=== PATIENT | female | born 1975 | race Hispanic/Latino ===

== ENCOUNTER 2016-03-12 06:59 | Day surgery (SDC) | payer OTHER ==
[~2016-03-12] VITALS: Ht 154.9 cm; Wt 61.4 kg
[2016-03-12] VITALS (8 sets, daily range): BP systolic 103–116; BP diastolic 57–71; PULSE 86–103; RESP 11–17; O2SAT 95–100
[~2016-03-12 06:59] MED LIST: Levofloxacin 500 mg/100 mL D5W IV ONE; NPR500T PO; mirena INTRAUTERI
[2016-03-12] MEDS ORDERED: Lidocaine PF 1% 30 mL Inj ONE (07:00)
[2016-03-12] MEDS ORDERED: Glycopyrrolate 0.2 mg/mL 5 mL Inj ONE (07:00)
[2016-03-12] MEDS ORDERED: Neostigmine 1 mg/mL 5 mL Inj ONE (07:00)
[2016-03-12] MEDS ORDERED: Dexamethasone 4 mg/mL Inj ONE (07:00)
[2016-03-12] MEDS ORDERED: fentaNYL-PF 50 mCg/mL 2 mL Inj ONE (07:00)
[2016-03-12] MEDS ORDERED: Propofol 10,000 mCg/mL 20 mL Inj ONE (07:00)
[2016-03-12] MEDS ORDERED: Ondansetron 2 mg/mL 2 mL Inj ONE (07:00)
[2016-03-12] MEDS ORDERED: Rocuronium 10 mg/mL 5 mL Inj ONE (07:00)
[2016-03-12] MEDS ORDERED: EPHEDrine/NS 5 mg/mL 5 mL Syringe ONE (07:00)
[2016-03-12] MEDS ORDERED: Lactated Ringer's 1,000 ML IV ONE ×2 (07:23→07:28)
[2016-03-12] MEDS ORDERED: POLY17PO6 PO (08:16)
[2016-03-12] MEDS ORDERED: OXYC5TAB72 PO (08:16)
[2016-03-12] MEDS ORDERED: Polyethylene Glycol (PEG) 17 Gm Powder PO SCH (08:30)
[2016-03-12] MEDS ORDERED: SENN-133 PO (08:32)
[2016-03-12] MEDS ORDERED: Bupivacaine-MPF 0.5% 30 mL Inj INFILTRATE ONE (09:13)
[2016-03-12] MEDS ORDERED: Lactated Ringer's 500 ML IV PRN (09:33)
[2016-03-12] MEDS ORDERED: Lactated Ringer's 1,000 ML IV SCH (09:33)
--- NOTE | 2016-03-12 09:33 | PCM.HPANE ---
Patient Data Surgeon Admitting Provider: Attending Provider:Isa Rangel MD Primary Care Physician:Sonia Lobato MD Other Provider:Josey Munroeingham Anesthesia Reason for Visit Cholelithiasis Ht/WT & BMI Height (Feet): 5 Height (Inches): 1.00 Weight (Kilograms): 61.4 Body Mass Index 25.00 Allergies Coded Allergies: No Known Allergies (Unverified Allergy, Unknown, 02/15/16) Past Anesthesia History Anesthesia History: Denies:: Abnormal Airway, Anesthesia Reactions, Difficult Intubation Diabetes History Hx Diabetes?: No MRSA MRSA: No Medications Hypertension Medication: No Home Meds Incl Beta Sarahy: No Active Scripts Sennosides (Senna)8.6 Mg Iiqzwm47.2 Mg PO DAILY #60 TABLET Ref 9 Prov:Isa Rangel MD 03/12/16 Polyethylene Glycol 3350 (Miralax)17 Gm Powd.pack17 Gm PO DAILY #20 Prov:Isa Rangel MD 03/12/16 oxyCODONE 5 Mg Tablet5 Mg PO Q4H PRN For Moderate Pain #20 TABLET Prov:Isa Rangel MD 03/12/16 Reported Medications Naproxen 500 Mg Liv912 Mg PO TID PRN For Pain Ref 0 03/09/16 [mirena] 20mcg/24hr No Conflict Check20 Mcg INTRAUTERI DAILY 03/09/16 History History of ENT Problems?: No HEENT History: Denies:: Abnormal Airway Cataracts Difficult Intubation Dysphagia Glaucoma Hearing Problem Sinus Problem TMJ Hx of Heart Problems?: No Cardiovascular History: Denies:: AICD Abdominal Aortic Aneurism Congestive Heart Failure Coronary Artery Disease Edema Heart Murmur Hypertension Irregular Heartbeat Pacemaker Peripheral Vascular Hx of Respiratory Problem?: Yes Respiratory History: Positive for:: Dyspnea (occasional) Denies:: Asthma COPD Emphysema Oxygen Administration Pneumonia Tuberculosis Use of C-PAP Machine Hx Neurologic Problems?: No Neurological History: Denies:: CVA Dementia Dizziness Headaches Multiple Sclerosis Parkinson's Disease Seizures TIA Hx of GI Problems?: Yes Gastrointestinal History: Positive for:: Gall Bladder Disease (current admission problem) Denies:: Gastroesphageal Reflux Heartburn Hiatal Hernia Liver Disease Rectal Bleeding Hx of Problems?: No Genitourinary History: Denies:: Kidney Stones Urinary Tract Infection Female Hx: Denies:: Currently (tubal ligation) Problems with Breasts? Hx Musculoskeletal Problems?: No Musculoskeletal History: Denies:: Back Injury Fibromyalgia Joint Replacement Musculoskeletal Trauma Myasthenia Gravis Osteoarthritis Rheumatoid Arthritis Hx of Psycho/Social Problems?: No Hx Surgeries?: Yes (c section, tubal ligation) Hx Any Other Health Problems?: Yes Other History: Denies:: Cancer Thyroid Disease History Blood Transfusions: Positive for:: Accept Blood Products? Denies:: Blood Transfusions Hx Diabetes: No Hx Alcohol Use: NoHx Substance Use: No Smoking Status: Never Smoker Have You Smoked inLast 12 mo: No Stop/Bang S-Snoring: Do You Snore Loudly: No T-Tired: feel tired, fatigued: No O-Obsered: Observed not breath: No P-Blood Pressure: treated: No B- Body Mass Index > 35 kg/m2: No A- Age over 50: No N- Neck Large Circumference: No G- Gender Male: No ANAID Total Score: 0 Risk Assessment Category Category 1A: Patient has history of documented sleep apnea, and HAS NOT received any narcotic, sedative or anesthesia administration during this stay. Category 1B: Patient has history of documented sleep apnea, and HAS received any narcotic , sedative or anesthesia administration during this stay Category 2: Patient has SUSPECTED Obstructive Sleep Apnea, and HAS received any narcotic , sedative or anesthesia administration during this stay. Category 3: Patient has SUSPECTED Obstructive Sleep Apnea and HAS NOT received narcotic, sedative or anesthesia administration during this stay. Category 4: Outpatient in Procedural Areas with known sleep apnea or who screen positive for High Risk via the STOP/BANG questionnaire. Exam Exam Vital Signs Vital Signs Date Time Temp Pulse Resp B/P Pulse Ox O2 Delivery O2 Flow Rate FiO2 03/12/16 07:29 36 86 17 103/57 99 Room Air General Appearance: Alert, Oriented X3 HEENT/AIRWAY: MP 2, Neck Movement (FROM) Lungs: Clear to Auscultation, Clear to Percussion Heart: Exam Unremarkable, Regular Rate/Rhythm Meds/Labs/Diagnostics Admission Meds Current Medications Lactated Ringer's (Lr) 1,000 ml @ ud STK-MED ONCE IV Last administered on t 07:28; Start 03/12/16 at 07:28; Stop 03/12/16 at 07:29; Status DC Plan Impression Patient chart reviewed, patient interviewed and anesthestic plan with risks, benefits, and alternatives discussed, and informed consent obtained. NPO Status: 03/11@1999 ASA Physical Status: ASA2 Mod Systemic Disease Anesthetic Plan: GA Bene/Risks/Altern/Consents: Yes HP Complete Prior to Induction: Yes Chava Araiza MD Mar 12, 2016 07:49
[2016-03-12] MEDS ORDERED: Atropine 0.4 mg/mL Inj IVPUSH PRN (09:35)
[2016-03-12] MEDS ORDERED: Labetalol 5 mg/mL 4 mL Inj IV PRN (09:35)
[2016-03-12] MEDS ORDERED: Dexamethasone 4 mg/mL Inj IVPUSH PRN (09:35)
[2016-03-12] MEDS ORDERED: Phenylephrine 10,000 mCg/mL Inj IVPUSH PRN (09:35)
[2016-03-12] MEDS ORDERED: Ondansetron 2 mg/mL 2 mL Inj IVPUSH PRN (09:35)
[2016-03-12] MEDS ORDERED: HYDROmorphone 1 mg/mL Inj IVPUSH PRN (09:35)
[2016-03-12] MEDS ORDERED: EPHEDrine Sulfate 50 mg/mL Inj IVPUSH PRN (09:35)
[2016-03-12] MEDS: fentaNYL-PF 50 mCg/mL 2 mL Inj IVPUSH PRN ×2 (11:33→11:48)
--- NOTE | 2016-03-12 12:10 | PCM.ANEP1 ---
Post Anesthesia Phase 1 PACU Phase 1 Assessment Vital Signs Vital Signs Date Time Temp Pulse Resp B/P Pulse Ox O2 Delivery O2 Flow Rate FiO2 03/12/16 11:35 90 14 112/65 99 Nasal Cannula 2 03/12/16 11:25 95 13 115/62 95 Room Air 03/12/16 11:15 36.6 101 11 116/64 100 Simple Mask 10 03/12/16 07:29 36 86 17 103/57 99 Room Air Anesthetic Administered: GA Level of Alertness: Awake, talking BEAVERS's with Equal Strength: Yes Pain: No Nausea or Vomiting: No Oxygen Delivery: Simple Mask Lungs: Clear to Auscultation, Clear to Percussion Chava Araiza MD Mar 12, 2016 12:10
--- NOTE | 2016-03-12 12:10 | PCM.ANEP2 ---
Post Anesthesia Evaluation ASA/CMS Post Anesthesia VS in Patient's Normal Range?: Yes Resp Stable; Airway Patent?: Yes CV Function & Hydration Stable: Yes Mental Status Recovered?: Yes Pain control Satisfactory?: Yes N/V Control Satisfactory?: Yes Chava Araiza MD Mar 12, 2016 12:10
--- NOTE | 2016-03-12 12:31 | OP ---
[address] [address] OPERATIVE REPORT PATIENT: ODILON DUNLAP : 1975 MR#: [id number] ADMIT: 03/12/2016 JOB ID: [id number] DATE OF SURGERY: 03/12/2016 PREOPERATIVE DIAGNOSIS(ES): Cholelithiasis. POSTOPERATIVE DIAGNOSIS(ES): Cholelithiasis. PROCEDURE PERFORMED: Laparoscopic cholecystectomy with attempted intraoperative cholangiogram. SURGEON: Isa Rangel MD HAT IRONER: Frandy Baker PA-C INDICATIONS: The patient is a 41-year-old lady who presented to our emergency room on February 15, 2016, with abdominal pain, nausea, and vomiting. There was a question of gallstones raised based on bedside ultrasound, but she had a CT and normal liver function studies, and they told her she did not have gallstones. After going home, she continued to have episodic upper abdominal pain, and Dr. Lobato got an ultrasound which showed gallstones and sent her to be served for surgical consultation. After discussing the risks, benefits, and alternatives, she is here today for laparoscopic cholecystectomy with cholangiogram. PROCEDURE DETAILS: She was placed in supine position and underwent smooth induction of general anesthesia. Abdomen was prepped and draped in the usual sterile fashion. Surgical time-out was undertaken using safety checklist, and all were in agreement. I began by making an infraumbilical incision, opening up the old infraumbilical scar. I entered the abdomen using combination of open Trev technique and the Optiview trocar after obtaining pneumoperitoneum with a 5 mm port abscess to a 12 and placed her in right side up head up position and placed three additional 5 mm ports under direct vision in the upper abdomen. I then retracted the gallbladder cephalad and to the right and took the adhesions of the duodenum down sharply. After that, I dissected the triangle of Calot anteriorly and posteriorly. I isolated the cystic artery and divided it between clips. After that, I dissected the cystic duct circumferentially and made a ductotomy after controlling it with a clip on the specimen side. Attempts to advance a cholangiogram catheter through the duct were not successful, and ultimately actually I ended up transecting the duct. After that, I grabbed the cystic duct stump with a clamp and attempted to do a cholangiogram, but I was not successful. Then, I ended up controlling it with a clip and an Endoloop. After that, I dissected the rest of the gallbladder off the liver bed with good hemostasis and placed it in an EndoCatch bag. After ensuring I had good hemostasis, I removed the gallbladder along with the bag and desufflated the abdomen and closed the umbilical port fascia with [id number] 0-Vicryl suture. Skin was reapproximated with 4-0 Monocryl. Steri-Strips and sterile dressing were applied. Patient was recovered from anesthesia and was taken to the recovery room in stable condition.
--- NOTE | 2016-03-14 11:26 | PATH ---
SURGICAL PATHOLOGY Attending Physician:Isa Rangel MD CASE STATUS: Signed Out PATIENT NAME: ODILON DUNLAP PID: [id number] : 1975 DATE COLLECTED:03/12/2016 20:31 SPECIMEN: Gallbladder CLINICAL HISTORY: CHOLELITHIASIS 1). GALLBLADDER FINAL DIAGNOSIS: 1.GALLBLADDER: CHOLELITHIASIS. NO EVIDENCE OF MALIGNANCY. ICD10 CODE K80.7 GROSS DESCRIPTION: The specimen is received in one formalin filled container labeled with the patient's name, sublabeled "gallbladder" and consists of a slightly opened 9.0 x 3.0 x 2.5 CM gallbladder. The serosa is smooth. The wall is 0.3-0.6 CM in thickness. The mucosa is a light green to to in color. The lumen contains a light green mucoid material and approximately 30-40 light yellow-green multifaceted calculi which range in size from 0.2-0.7 CM in greatest dimension. 5 member services representative sections are submitted in one cassette. 03/12/2016 DAC MICRO DESCRIPTION: See diagnosis. ICD-9 CODES: CPT CODES: 1: 78207 Electronically Signed Out Maru Stewart MD [facility] [address], [place] [address] Technical component performed at [facility], [facility] [address], [place], [address]
== END 2016-03-12 23:59 | disposition home or self-care (01) ==
LOC: SAS 06:59
PROVIDERS: ATTEND Student in an Organized Health Care Education/Training Program
DX: K80.20 Calculus of gallbladder without cholecystitis without obstruction (principal); D64.9 Anemia, unspecified; F32.9 Major depressive disorder, single episode, unspecified; K59.00 Constipation, unspecified; Z97.5 Presence of (intrauterine) contraceptive device
CPT/HCPCS: 47563; 76001; J1100; J1170; J2405; J2710; J7120

== ENCOUNTER 2016-04-09 17:04 | Inpatient (IN) | payer OTHER ==
[~2016-04-09] VITALS: Ht 162.6 cm; Wt 57.0 kg
[~2016-04-09 17:04] MED LIST changes: -Levofloxacin 500 mg/100 mL D5W IV ONE; +OXYC5TAB72 PO; +POLY17PO6 PO; +SENN-133 PO
[2016-04-09 18:37] VITALS: BP 124/82; PULSE 75; RESP 18; O2SAT 100
[2016-04-09] MEDS ORDERED: Ondansetron 2 mg/mL 2 mL Inj IVPUSH PRN (18:45)
[2016-04-09] MEDS ORDERED: MetoCLOpramide 5 mg/mL 2 mL Inj IVPUSH PRN (18:45)
[2016-04-09] MEDS ORDERED: HYDROmorphone PCA 0.2 mg/mL 30 mL Inj IV PRN (18:45)
--- NOTE | 2016-04-09 19:12 | NUR ---
pt arrived from Urgent Care as a direct admit under Dr Rangel, admitted with acute biliary obstruction, pt fairly comfortable at this time because she received a Pain med injection at Urgent Care. Denies nausea
[2016-04-09] MEDS ORDERED: OXYC-474 PO (19:50)
[2016-04-09] MEDS ORDERED: SENN-133 PO (19:50)
[2016-04-09] MEDS: Ampicillin-Sulbactam Inj 3,000 MG in 0.9% Sodium Chloride 100 ML IV SCH ×2 (20:30→23:10)
[2016-04-09 20:50] VITALS: BP 104/68; PULSE 69; RESP 16; O2SAT 99
--- NOTE | 2016-04-09 21:11 | DRSVH ---
PROCEDURE: MR ABDOMEN MRCP INDICATIONS: Abdomen pain,Choledocholithiasis TECHNIQUE: Coronal HASTE through the abdomen, axial 2-D FLASH in- and [id number], and breath-hold T2 FSE with fat saturation through the biliary system and pancreas. Oblique coronal and axial thin-slice HASTE, radial thick-slab HASTE centered on the extrahepatic bile ducts. Intravenous secretin: Not requested. COMPARISON: [facility], CT, CT ABD PELVIS W CON, 04/09/2016, 15:58. FINDINGS: Image quality: Excellent. Pancreas and biliary system: Intra- and extra-hepatic biliary ducts are non dilated considering post -cholecystectomy status. Pancreas is normal in morphology, without adjacent soft tissue edema. Panc reatic duct is normal in caliber, without developmental anomalies. Gallbladder is surgically absent. There are, however, to distal common duct stones one measuring 3 mm and the second measuring up to 5 mm in diameter, distally. A calculus at the ampulla is not seen. Other solid organs: Liver and spleen are normal in size. No adrenal nodules. Both kidneys are norm al in size, without hydronephrosis. Nodes and vessels: No retroperitoneal or mesenteric adenopathy by size criteria. Aorta and inferior vena cava are normal in size. Bowel and peritoneum: Unenhanced bowel loops are normal in caliber. No free fluid. Lung bases: No basal pleural effusions. Heart size is normal. Bones and soft tissues: No ventral hernias. Bone marrow is of normal overall signal. IMPRESSION: 2 distal common bile duct stones are present, one of which measures 3 mm and the second measures 5 mm in maximal transverse dimension. No evidence of acute bile duct obstruction at this ti me but there is potential for subsequent obstructive event. No intrahepatic biliary distention is cu rrently seen. Prior cholecystectomy. Dictated by: Phillip Pereyra M.D. on 04/09/2016 at 21:03 Approved by: Phillip Pereyra M.D. on 04/09/2016 at 21:09
[2016-04-09] MEDS: D5 0.45% NaCl + KCl 20 mEq/L 1,000 ML IV SCH (21:17)
[2016-04-10] VITALS (18 sets, daily range): BP systolic 105–147; BP diastolic 60–88; PULSE 69–104; RESP 10–22; O2SAT 97–100
[2016-04-10] MEDS: Sodium Chloride LOK Flush 10 mL Syringe IVFLUSH SCH ×2 (00:30→09:25)
[2016-04-10] MEDS: D5 0.45% NaCl + KCl 20 mEq/L 1,000 ML IV SCH ×2 (04:41→12:48)
[2016-04-10] MEDS: Ampicillin-Sulbactam Inj 3,000 MG in 0.9% Sodium Chloride 100 ML IV SCH ×4 (04:50→20:54)
[2016-04-10 05:43] LABS: BASOPHILS % (AUTO) 0.8 % (0-3); EOSINOPHILS % (AUTO) 7.8 % (0-5); MONOCYTES % (AUTO) 15.4 % (4-12); Mean Corpuscular Volume 88.8 fL (81-100); Platelet Count 252 bil/L (150-400)
[2016-04-10 06:42] LABS: INR 1.01 ratio
[2016-04-10] MEDS ORDERED: 0.9% Sodium Chloride 250 ML ONE (10:54)
[2016-04-10] MEDS ORDERED: Lactated Ringer's 1,000 ML IV ONE (14:34)
--- NOTE | 2016-04-10 14:35 | NUR ---
Social Work Screen Note: SW met with patient at bedside to discuss discharge plan. Patient asleep at bedside and [place], verified information. Patient is a 41 year old female admitted under observation status on 04/09/16 for acute billary obstruction. Patient payer as [employer]. Patient has no fci nor VA benefits. Patient resides in [facility] with . Patient pharmacy of choice as [facility]. patient has no HHC, SNF, or DME history. Patient independent with needs prior to admit and to provide support and care in addition to support from daughter. No anticipated discharge needs at this time. SW to follow. PLAN: Home with via POV, pending clinical course. SW to follow. Umang JACOBS
[2016-04-10] MEDS ORDERED: HYDROmorphone 1 mg/mL Inj IVPUSH PRN ×2 (16:10→19:50)
[2016-04-10] MEDS ORDERED: Ondansetron 2 mg/mL 2 mL Inj IVPUSH PRN (17:50)
[2016-04-10] MEDS: Lactated Ringer's 1,000 ML IV SCH ×3 (17:50→20:13)
[2016-04-10] MEDS ORDERED: MetoCLOpramide 5 mg/mL 2 mL Inj IVPUSH PRN ×2 (17:50→19:50)
--- NOTE | 2016-04-10 17:50 | PCM.HPANE ---
Patient Data Surgeon Admitting Provider:Isa Rangel MD Attending Provider:Isa Rangel MD Primary Care Physician:Sonia Lobato MD Other Provider: Reason for Visit Acute Biliary Obstruction Ht/WT & BMI Height (Feet): 5 Height (Inches): 4.00 Weight (Kilograms): 57.000 Body Mass Index 21.00 Allergies Coded Allergies: No Known Allergies (Unverified Allergy, Unknown, 04/10/16) Past Anesthesia History Anesthesia History: Denies:: Abnormal Airway, Anesthesia Reactions, Difficult Intubation Diabetes History Hx Diabetes?: No Current Bedside Blood Glucose: 96 MRSA MRSA: No Medications Hypertension Medication: No Home Meds Incl Beta Sarahy: No Reported Medications Oxycodone (Roxicodone)5 Mg Tablet5 Mg PO Q4H PRN For Pain Ref 0 04/09/16 Sennosides (Senna)8.6 Mg Tablet8.6 Mg PO DAILY 04/09/16 [mirena] 20mcg/24hr No Conflict Check20 Mcg INTRAUTERI DAILY 03/09/16 Discontinued Reported Medications Naproxen 500 Mg Hki565 Mg PO TID PRN For Pain Ref 0 03/09/16 Discontinued Scripts Sennosides (Senna)8.6 Mg Zygfrg45.2 Mg PO DAILY #60 TABLET Ref 9 Prov:Isa Rangel MD 03/12/16 Polyethylene Glycol 3350 (Miralax)17 Gm Powd.pack17 Gm PO DAILY #20 Prov:Isa Rangel MD 03/12/16 oxyCODONE 5 Mg Tablet5 Mg PO Q4H PRN For Moderate Pain #20 TABLET Prov:Isa Rangel MD 03/12/16 History History of ENT Problems?: No HEENT History: Denies:: Abnormal Airway Cataracts Difficult Intubation Dysphagia Hearing Problem Sinus Problem TMJ Teeth Condition: Missing Teeth Other HEENT Pertinent History: Missing molar Hx of Heart Problems?: No Cardiovascular History: Denies:: AICD Abdominal Aortic Aneurism Congestive Heart Failure Edema Heart Murmur Hypertension Irregular Heartbeat Pacemaker Hx of Respiratory Problem?: No Respiratory History: Positive for:: Dyspnea (occasional) Denies:: Asthma COPD Emphysema Oxygen Administration Pneumonia Tuberculosis Use of C-PAP Machine Hx Neurologic Problems?: No Neurological History: Denies:: CVA Dementia Dizziness Headaches Multiple Sclerosis Parkinson's Disease Seizures Hx of GI Problems?: Yes Gastrointestinal History: Positive for:: Gall Bladder Disease (Lap Mirian ) Denies:: Gastroesphageal Reflux Heartburn Hiatal Hernia Rectal Bleeding Other GI Pertinent History: Hx of Problems?: No Genitourinary History: Denies:: Kidney Stones Urinary Tract Infection Female Hx: Denies:: Currently (Tubal + IUD) Problems with Breasts? Hx Musculoskeletal Problems?: No Musculoskeletal History: Denies:: Back Injury Fibromyalgia Joint Replacement Musculoskeletal Trauma Hx of Psycho/Social Problems?: No Psycho Social History: Denies:: Anxiety Hx Depression Hx Surgeries?: Yes (c section, tubal ligation, lap mirian) Hx Any Other Health Problems?: No Other History: Denies:: Cancer Thyroid Disease History Blood Transfusions: Denies:: Blood Transfusions Hx Diabetes: NoBedside Blood Glucose: 96 Hx Alcohol Use: NoHx Substance Use: No Smoking Status: Never Smoker Have You Smoked inLast 12 mo: No Stop/Bang Treated for Sleep Apnea?: No Do You Have a CPAP Machine?: No S-Snoring: Do You Snore Loudly: No T-Tired: feel tired, fatigued: No O-Obsered: Observed not breath: No P-Blood Pressure: treated: No B- Body Mass Index > 35 kg/m2: No A- Age over 50: No N- Neck Large Circumference: No G- Gender Male: No ANAID Total Score: 0 ANAID Risk Assessment: Low Risk, <3 Yes Risk Assessment Category Category 1A: Patient has history of documented sleep apnea, and HAS NOT received any narcotic, sedative or anesthesia administration during this stay. Category 1B: Patient has history of documented sleep apnea, and HAS received any narcotic , sedative or anesthesia administration during this stay Category 2: Patient has SUSPECTED Obstructive Sleep Apnea, and HAS received any narcotic , sedative or anesthesia administration during this stay. Category 3: Patient has SUSPECTED Obstructive Sleep Apnea and HAS NOT received narcotic, sedative or anesthesia administration during this stay. Category 4: Outpatient in Procedural Areas with known sleep apnea or who screen positive for High Risk via the STOP/BANG questionnaire. Exam Exam Vital Signs Vital Signs Date Time Temp Pulse Resp B/P Pulse Ox O2 Delivery O2 Flow Rate FiO2 04/10/16 16:17 104 16 120/82 100 Room Air 04/10/16 15:02 37.1 85 16 120/79 98 Room Air 04/10/16 12:35 36.9 76 18 119/78 97 Room Air General Appearance: Alert, Oriented X3, Cooperative, No Acute Distress HEENT/AIRWAY: MP 2 Lungs: Clear to Auscultation, Normal Air Movement Heart: Exam Unremarkable, Regular Rate/Rhythm, No Murmurs/Rubs/Gallops Meds/Labs/Diagnostics Admission Meds Current Medications Potassium Chloride/Dextrose/ Sod Cl 1,000 ml @ 100 mls/hr Q10H IV Last administered on 04/10/16 12:48; Start 04/09/16 at 18:41 Ampicillin Sodium/ Sulbactam Sodium/ Sodium Chloride (Unasyn Inj/ Normal Saline ) 100 ml @ 200 mls/hr Q6 IV Last administered on 04/10/16 11:00; Start at 20:30 Sodium Chloride 10 ml 10 ml ZANDRA IVFLUSH Last administered on 04/10/16 09:25; Start 04/10/16 at 00:30 Sodium Chloride 250 ml @ ud STK-MED ONCE .ROUTE Last administered on 04/10/16 11:00; Start 04/10/16 at 10:54; Stop 04/10/16 at 10:56; Status DC Lactated Ringer's (Lr) 1,000 ml @ ud STK-MED ONCE IV Last administered on 17:15; Start 04/10/16 at 14:34; Stop 04/10/16 at 14:37; Status DC Indomethacin (Indocin Rectal Supp) 100 mg ONCE ONCE RECTAL Last administered on 04/10/16 17:15; Start 04/10/16 at 14:40; Stop 04/10/16 at 14:44; Status DC Bedside Blood Glucose: 96 Labs Test 04/10/16 04:54 White Blood Count 6.6th/mm3 (3.8-10.1) Red Blood Count 4.00mil/mm3 (3.90-5.20) Hemoglobin 12.0g/dL (12.0-15.6) Hematocrit 35.5% (35.0-46.0) Mean Corpuscular Volume 88.8fL (81-100) Mean Corpuscular Hemoglobin 30.0pg (27.0-35.0) Mean Corpuscular Hemoglobin Concent 33.8% (32.0-37.0) Red Cell Distribution Width 12.9% (12.3-15.4) Platelet Count 252bil/L (150-400) Neutrophils (%) (Auto) 44.0% (40-74) Lymphocytes (%) (Auto) 31.5% (14-46) Monocytes (%) (Auto) 15.4% (4-12) Eosinophils (%) (Auto) 7.8% (0-5) Basophils (%) (Auto) 0.8% (0-3) Prothrombin Time 10.8sec (8.1-12.5) Prothromb Time International Ratio 1.01ratio Sodium Level 140mEq/L (134-144) Potassium Level 3.5mEq/L (3.5-5.2) Chloride Level 104mEq/L (97-108) Carbon Dioxide Level 24mmol/L (18-29) Blood Urea Nitrogen 7mg/dL (6-24) Creatinine 0.33mg/dL (0.57-1.00) Estimat Glomerular Filtration Rate 316mL/min (>59) Glucose Level 130mg/dL (60-99) Calcium Level 8.0mg/dL (8.5-10.1) Total Bilirubin 2.1mg/dL (0.0-1.2) Aspartate Amino Transf (AST/SGOT) 424U/L (0-50) Alanine Aminotransferase (ALT/SGPT) 785U/L (0-32) Alkaline Phosphatase 154U/L (25-150) Total Protein 6.3g/dL (6.4-8.4) Albumin 3.8g/dL (3.4-5.0) Lipase 26U/L (13-60) Plan Impression Patient chart reviewed, patient interviewed and anesthestic plan with risks, benefits, and alternatives discussed, and informed consent obtained. NPO Status: 03/11@1999 ASA Physical Status: ASA2 Mod Systemic Disease Anesthetic Plan: GA Bene/Risks/Altern/Consents: Yes HP Complete Prior to Induction: Yes Rj Marroquin MD Apr 10, 2016 17:50
[2016-04-10] MEDS ORDERED: Ketamine 10 mg/mL 20 mL Inj ONE (17:59)
[2016-04-10] MEDS ORDERED: fentaNYL-PF 50 mCg/mL 2 mL Inj ONE (17:59)
--- NOTE | 2016-04-10 18:04 | HP ---
[address] [address] HISTORY AND PHYSICAL PATIENT: ODILON DUNLAP : 1975 MR#: [id number] ADMIT: 04/09/2016 JOB ID: [id number] CHIEF COMPLAINT: A 41-year-old lady with possible choledocholithiasis admitted at the request of DEVON Hood, in Urgent Care. HISTORY OF PRESENT ILLNESS: The patient is a 41-year-old lady who presented on February 15, 2016 to the emergency department with abdominal pain, nausea, and vomiting. They apparently thought she had gallstones based on bedside ultrasound but was later told she did not based on CT scan. At home she continued to have episodic upper abdominal pain nausea, and dizziness, especially precipitated by foods. Dr. Lobato got an abdominal ultrasound and sent her to me for surgical consultation. Ultrasound of the abdomen performed in February showed multiple shadowing gallstones in the gallbladder, hepatic steatosis, and no gallbladder wall thickening. Labs in the emergency department showed normal liver function studies. I performed a laparoscopic cholecystectomy on March 12, 2016. I eight attempted to perform an intraoperative cholangiogram but I was not successful to cannulate the cystic duct. She did well postoperatively until three days ago when she developed upper abdominal pain radiating to the back, associated with nausea and vomiting. This prompted her to present to urgent care yesterday. At that time, she was found to have elevated abnormal liver function studies and a CT scan showing the dilated bile duct, prompting DEVON Hood to consult me and her being admitted to my team overnight. Overnight, with the pain medication, she feels like her abdominal symptoms have improved though she still continues to have some upper abdominal pain requiring pain medication. OTHER MEDICAL PROBLEMS: 1. Constipation. 2. Anemia. PRIOR OPERATIONS: 1. Tubal ligation in 1997 in [place]. 2. Laparoscopic cholecystectomy with attempted cholangiogram on March 12, 2016. MEDICATIONS: Mirena IUD. REVIEW OF SYSTEMS: Twelve point review of systems negative other than the pertinent positives noted in the history of present illness and other medical problems. FAMILY HISTORY: Mother has diabetes. SOCIAL HISTORY: She has never smoked. She does not consume alcohol. She only speaks Croatian. INVESTIGATIONS: Labs from April 09, 2016: WBC 8.2, platelet count 285, hemoglobin 13.7. Alkaline phosphatase 164, ALT 1108, AST 869, bilirubin 2.4, albumin 4.7, lipase 28. CT abdomen and pelvis with contrast April 09, 2016 showed biliary ductal dilatation with common bile duct dilated up to 1.1 cm. MRCP performed April 09, 2016, showed common bile duct stones with one measuring 3 mm and another one measuring 5 mm in the lower part of the common bile duct. No obvious calculi was seen at the ampulla and the biliary ducts were not thought to be obviously dilated. PHYSICAL EXAMINATION: A 41-year-old lady in no acute distress. Temperature 36.7, pulse 74, respiratory rate 18, blood pressure 113/72, saturating 98% on room air. Eyes: Normal pupils, conjunctivae. Ears, nose, and throat: Normal external appearance. Neck: No lymphadenopathy or jugular venous distention. Cardiovascular: Regular rate and rhythm. Respiratory: Normal effort, clear to auscultation. Chest: Breast exam deferred. Gastrointestinal: Abdominal incisions well healed. Tender to deep palpation in the right upper quadrant. Genitourinary: Deferred. Musculoskeletal: Normal strength in extremities. Neurologic: No gross deficits. Psych: Alert, appropriate. ASSESSMENT AND PLAN: Choledocholithiasis. Discussed the pathophysiology and treatment rationale for retained common bile duct stones and recommended ERCP with sphincterotomy by gastroenterology. I discussed her case already with Dr. Croft last night. The patient and her are nervous about further interventions and would like to discuss with Dr. Croft about further options before proceeding with intervention, which is reasonable. I if we decide to monitor her, I would repeat her liver function studies with the hope that she will pass the stones, but given the fact that she has multiple stones and is still having abdominal pain, I would think the best option at this point would be to go ahead and proceed with the ERCP. For now we will keep her n.p.o. and continue the pain medication and antibiotics, waiting on the procedural intervention by Dr. Croft.
--- NOTE | 2016-04-10 18:06 | NUR ---
Off unit for ERCP Pt off unit at 1445 for ERCP. Consent received from Dr. Croft with and all questions answered.
[2016-04-10] MEDS ORDERED: Phenylephrine 10,000 mCg/mL Inj IVPUSH PRN (19:50)
[2016-04-10] MEDS ORDERED: Dexamethasone 4 mg/mL Inj IVPUSH PRN (19:50)
[2016-04-10] MEDS ORDERED: Lactated Ringer's 1,000 ML IV SCH (19:50)
[2016-04-10] MEDS ORDERED: fentaNYL-PF 50 mCg/mL 2 mL Inj IVPUSH PRN (19:50)
[2016-04-10] MEDS ORDERED: Lactated Ringer's 500 ML IV PRN (19:50)
[2016-04-10] MEDS ORDERED: EPHEDrine Sulfate 50 mg/mL Inj IVPUSH PRN (19:50)
--- NOTE | 2016-04-10 19:52 | PCM.ANEP1 ---
Post Anesthesia Phase 1 PACU Phase 1 Assessment Vital Signs Vital Signs Date Time Temp Pulse Resp B/P Pulse Ox O2 Delivery O2 Flow Rate FiO2 04/10/16 19:47 22 128/60 100 Nasal Cannula 2 04/10/16 19:45 36.5 94 04/10/16 16:17 104 16 120/82 100 Room Air 04/10/16 15:02 37.1 85 16 120/79 98 Room Air 04/10/16 12:35 36.9 76 18 119/78 97 Room Air Anesthetic Administered: GA Level of Alertness: Sleepy, easy to arouse Pain: No Oxygen Delivery: Nasal Cannula Lungs: Clear to Auscultation, Normal Air Movement Kyaw Bingham MD Apr 10, 2016 19:52
--- NOTE | 2016-04-10 20:34 | CONS ---
[address] [address] CONSULTATION REPORT PATIENT: ODILON DUNLAP : 1975 MR#: [id number] ADMIT: 04/09/2016 JOB ID: [id number] DATE OF SERVICE: 04/10/2016 REQUESTING PROVIDER: Isa Rangel MD REASON FOR CONSULTATION: Suspected choledocholithiasis. HISTORY OF PRESENT ILLNESS: This is a 41-year-old female who experienced a laparoscopic cholecystectomy on March 12, 2016 after initial presentation back in mid February with abdominal pain, nausea, vomiting. Back at that time, she did not have abnormal liver chemistries. Lipase was normal. She had an uneventful laparoscopic cholecystectomy. However, in followup she developed symptoms of right upper quadrant pain into the back and abnormal liver chemistries were noted. A CAT scan was accomplished on April 09 which revealed biliary ductal dilatation. She had an MRCP last night as well which showed two distal common duct stones. ALLERGIES: No known drug allergies. MEDICATIONS: The patient was takin. Senna p.r.n. 2. Oxycodone. 3. Intrauterine contraceptive device Mirena. 4. She was taking some naproxen at home as well 5. P.r.n. MiraLAX. PAST MEDICAL HISTORY: Cholelithiasis, constipation, anemia. PAST SURGICAL HISTORY: Laparoscopic cholecystectomy, as above. Tubal ligation. FAMILY HISTORY: Noncontributory. SOCIAL HISTORY: The patient is [place]dean-speaking. No habits. Her 's name is Logan. REVIEW OF SYSTEMS: The patient is continuing to need pain meds for right back pain. She has been afebrile here in the hospital. Review is otherwise as per HPI. PHYSICAL EXAMINATION: Temperature 36.9, pulse 76, breathing 18, blood pressure 119/78, 97% on room air. The patient was in no distress. Alert, oriented, appropriate, cooperative, conversational. There was some mild tenderness to palpation in the right upper quadrant region. Laparoscopic incisions look great. Lungs were clear bilaterally. Heart regular. No peripheral pitting edema. LABORATORY DATA: Bilirubin this morning was 2.1. AST 424, ALT 785, alk phos 154, lipase 26, creatinine was normal at 0.33, INR 1.01, platelets were 252, hemoglobin 12, hematocrit 35.5, white count 6.6. IMAGING: As above. ASSESSMENT AND PLAN: A 41-year-old female with choledocholithiasis. Endoscopic retrograde cholangiopancreatography was discussed including the potential complications including perforation, bleeding from the sphincterotomy, need for recurrent surgery, hemodynamic instability from the sedation medications and the approximately 5% chance of post ERCP pancreatitis. The patient consented to proceed. Please see the procedure note for further details.
--- NOTE | 2016-04-10 21:58 | ENDO ---
[address] [address] ENDOSCOPY PROCEDURE PATIENT: ODILON DUNLAP : 1975 MR#: [id number] ADMIT: 04/09/2016 JOB ID: [id number] PROCEDURE: Endoscopic retrograde cholangiopancreatography with biliary sphincterotomy and stone extraction. INDICATIONS: A 41-year-old female with choledocholithiasis. EQUIPMENT: Standard duodenoscope. SEDATION: General anesthesia with endotracheal intubation as provided by Dr. Rj Marroquin and Kyaw Bingham MD. COMPLICATIONS: None identified. PROCEDURE INFORMATION: After the risks and benefits were explained, written and verbal informed consent was obtained. The patient was brought into the endoscopy suite and placed into the prone position following anesthesia and intubation. The endoscope was introduced into the mouth through the bite block and advanced under indirect visualization to stomach. From there, under direct visualization we guided the scope into the second portion of the duodenum. Both the minor and major papilla were identified. Major papilla appeared to be exuding a small amount of quevedo colored bile quite readily through the biliary os. The patient appeared to have a fairly full and long intraduodenal segment of bile duct. Initial attempts at cannulation with an Olympus 20 mm sphincterotome preloaded with an 0.25 short straight Visiglide wire were unsuccessful. We found the pancreatic duct on a number of occasions. We swapped out for the [employer] Dreamtome, and attempted cannulation with an 0.35 short straight Dreamwire. This ultimately was not successful. We found the pancreatic duct with this wire. Using an 0.25 short [employer] guidewire angled, we attempted to gain access with this wire but this failed as well. We then swapped out for the Olympus sphincterotome which was preloaded with the 0.25 short straight Visiglide and with some difficulty were able to find the biliary tree. The wire was advanced into the intrahepatics. The pancreatic wire was then removed. We had seen a couple of filling defects on cholangiogram even before biliary access. We pursued biliary sphincterotomy which appeared quite adequate and was somewhere in the neighborhood of about 10 mm long. We then swapped the sphincterotome out for the Olympus multi-staged balloon-tipped stone extraction catheter with port below the balloon. We engaged one of the stones with the 8.5 setting and removed it out through the sphincterotomy. The 2nd stone appeared to be slightly impacted on the residual sphincter mechanism. We then upsized the balloon higher up in the duct to the 11.5 setting and this engaged this stone a little better and pulled it down into the sphincterotomy. We downsized the balloon to 8.5, and in doing this it ejected the stone nicely out into the duodenum. Subsequent sweeps of the duct did not yield any further stones or debris. We could relatively easily draw the balloon-tipped catheter through the residual sphincter mechanism at the 8.5 setting quite readily. There was a small amount of bleeding after the stones had been removed but nothing appeared to be sustained and nothing appeared to mandate intervention such as injection, stenting, etc. The duct appeared to be adequately cleared and the catheter and wire were removed. The scope was then brought back to the stomach. Excess fluid and air was removed. The scope was then withdrawn from the patient who tolerated the procedure well. The patient had a 100 mg indomethacin suppository placed prior to being extubated to prophylax against post ERCP pancreatitis. She was extubated and transferred to the PACU in stable condition. FINDINGS: As above. Biliary cannulation was quite difficult. Procedure time was prolonged. Twenty-two modifier would be requested in this case. The patient had a lengthy intraduodenal and somewhat sinusoidal appearance to the distal duct which made wire cannulation extremely difficult. I think there was some mild edema and swelling of the distal duct which was created by the choledocholithiasis. I did not appreciate any actual stricture. The pancreatic duct did fill with contrast on a couple of occasions and appeared very normal caliber and drained of all contrast during the procedure. The two stones that were seen on MRCP were delivered successfully into the duodenum. ENDOSCOPIC DIAGNOSES: Choledocholithiasis status post biliary sphincterotomy and stone extraction. RECOMMENDATIONS: 1. The patient should continue IV fluids as per Dr. Rangel's orders. 2. N.p.o. x6 hours. At that point, she can be started on clear liquids. Diet can be advanced as tolerated starting tomorrow morning. 3. Labs are ordered for the morning. 4. I would avoid all NSAIDs for seven days.
[2016-04-11 00:20] VITALS: BP 126/79; PULSE 69; RESP 15; O2SAT 98
[2016-04-11] MEDS: D5 0.45% NaCl + KCl 20 mEq/L 1,000 ML IV SCH ×2 (05:17→10:41)
[2016-04-11] MEDS: Ampicillin-Sulbactam Inj 3,000 MG in 0.9% Sodium Chloride 100 ML IV SCH ×2 (05:17→10:40)
[2016-04-11] MEDS: Sodium Chloride LOK Flush 10 mL Syringe IVFLUSH SCH ×3 (05:18→10:34)
[2016-04-11 05:22] VITALS: BP 99/67; PULSE 68; RESP 14; O2SAT 98
[2016-04-11 05:31] VITALS: RESP 14; O2SAT 98
--- NOTE | 2016-04-11 06:14 | NUR ---
POST OP: Pt. returned from ENDO at 2024 after ERCP. Pt. is sedated but able to answer simple questions with a "yes or no" with head movement body language. Was able to transfer self from stretcher to her bed. Upper lip is swollen, has glove with ice in place. VS taken immediately upon arrival to [facility]. VSS. Saturation 100% at RA. Placed on SCDs. Placed on BUDGET CLERK upon arrival. C/o nausea, given 10 mg of IV Reglan. TY=580. Pt's family at her side. [employer]IAN Dilaudid is off for now as pt. is too sedated and is not c/o pain. NPO until 0200 this am, then clear liquids, advance as tolerated for breakfast. On going care.
--- NOTE | 2016-04-11 06:21 | NUR ---
ACTIVITY: Pt. woke up x2 and voided per [facility] one person assist for in and oob. No c/o pain or discomfort. Still sleeping soundly but awaking with minor stimulation, touch and sound of voice to the call of her name.
[2016-04-11 06:24] LABS: Mean Corpuscular Volume 87.5 fL (81-100)
[2016-04-11 08:53] VITALS: BP 105/70; PULSE 76; RESP 18; O2SAT 100
--- NOTE | 2016-04-11 09:49 | DRSVH ---
PROCEDURE: X-RAY E.R.C. BILIARY DUCTS ([id number]) INDICATIONS: CBD STONE TECHNIQUE: Fluoroscopic spot films were acquired by the gastroenterology service during ERCP procedu re. COMPARISON: [facility], MR, MR ABD MRCP, 04/09/2016, 19:24. FINDINGS: 5 submitted images demonstrate opacification of the extrahepatic bile duct and there are mu ltiple intraluminal filling defects seen suspicious for retained stones. No extravasation of contras t media. Sweeping balloon catheter is noted on several images. IMPRESSION: Multiple extrahepatic bile duct intraluminal filling defects suggesting retained stones. Dictated by: Freddy Casanova RRA Interpreted: Ruby Alba MD on 04/11/2016 at 9:48 Transcribed by: CARINA on 04/11/2016 at 9:49 Approved by: Ruby Alba MD, PhD on 04/11/2016 at 17:07
--- NOTE | 2016-04-11 11:33 | PCM.PNSURG ---
Subjective Date of Service: Apr 11, 2016 Visit Information: Choledocholithiasis s/p ERCP 04/10/2016 Date of Admission: Apr 09, 2016 at 17:58 Hospital Day # 3 Subjective: Feeling well, Tolerating Food Objective Vital Sign- Last 8 Hours Date Time Temp Pulse Resp B/P Pulse Ox O2 Delivery O2 Flow Rate FiO2 04/11/16 08:53 36.4 76 18 105/70 100 Room Air 04/11/16 05:31 14 98 04/11/16 05:22 36.5 68 14 99/67 98 Room Air Intake and Output- Last 8 Hour 04/11/16 Cumulative From/Thru 07:00 04/09/16 18:38 - 04/11/16 05:30 Intake Total 1065 ml 3818 ml Output Total 650 ml 1500 ml Balance 415 ml 2318 ml Intake Oral 100 ml 400 ml IV Total 965 ml 3418 ml Output Urine Total 650 ml 1500 ml # Voids 1 # Bowel Movements 0 Abdomen: Soft, Non-tender Result Diagram: 04/11/16 0545 04/11/16 0545 Assessment & Plan Impression Doing well Problems: Plan DC Home Follow up with Repeat LFTs in 2 weeks Isa Rangel MD Apr 11, 2016 11:33
--- NOTE | 2016-04-11 11:33 | PCM.DISURG ---
Surgical Discharge Instruction Date of Service Apr 11, 2016 Dates of Hospitalization Date of Hospital Admission Apr 09, 2016 at 17:58 Providers Admitting Physician: Isa Rangel MD Primary Care Physician: Sonia Lobato MD Attending Physician: Isa Rangel MD Discharge Diagnosis Discharge Diagnosis Choledocholithiasis s/p ERCP with stone extraction on 04/10/2016 Diet Discharge Diet: No restrictions Activity Discharge Activity-General: No restrictions Dressing and Incisional Care Hygiene: May shower Follow Up Plan Follow Up Plan Follow up in 2 weeks with Hepatic Function Panel Drawn 24 hrs prior to visit Follow-up Provider (F9): Isa Rangel MD Follow-up appointment: Weeks (2) Isa Rangel MD Apr 11, 2016 11:30
[2016-04-11 12:00] VITALS: BP 106/70; PULSE 73; RESP 18; O2SAT 100
--- NOTE | 2016-04-11 12:33 | NUR ---
Social Work Discharge: Order for discharge acknowledged. Plan is home with significant other Lissett who to assist and care for patient needs. Patient significant other to provide transport home upon discharge. No anticipated discharge needs identified at this time. SW to follow as further needs arise. PLAN: Home with ABBE Ford via POV, pending clinical course. SW to follow as further needs arise. Umang JACOBS
--- NOTE | 2016-04-11 13:07 | NUR ---
Discharge Pt DC home via private vehicle with , Logan at 1245. Dr. Croft called and spoke with Logan and answered all of his questions and both the pt and were understanding of all discharge instructions. Keri has had mild nausea and is slowly advancing her diet. She denies pain in her abdomen at this time and only c/o a "sore throat and puffy lip".
--- NOTE | 2016-04-11 13:36 | PCM.DC.SUR ---
Discharge Summary Date of Service: Apr 11, 2016 Date of Hospital Admission: Apr 09, 2016 at 17:58 Date of Operation(s): 2016 Date of Discharge: 04/11/18 Diagnosis at Time of Discharge Primary Diagnosis: Choledocholithiasis requiring ERCP this admit Laparoscopic cholecystectomy with attempted cholangiogram on March 12, 2016. Secondary diagnosis: Anemia Constipation Problems: Operation Endoscopic retrograde cholangiopancreatography with biliary sphincterotomy and stone extraction. Brief History and Physical: The patient is a 41-year-old lady who presented on February 15, 2016 to the emergency department with abdominal pain, nausea, and vomiting. They apparently thought she had gallstones based on bedside ultrasound but was later told she did not based on CT scan. At home she continued to have episodic upper abdominal pain nausea, and dizziness, especially precipitated by foods. Dr. Lobato got an abdominal ultrasound and sent her to me for surgical consultation. Ultrasound of the abdomen performed in February showed multiple shadowing gallstones in the gallbladder, hepatic steatosis, and no gallbladder wall thickening. Labs in the emergency department showed normal liver function studies. I performed a laparoscopic cholecystectomy on March 12, 2016. I eight attempted to perform an intraoperative cholangiogram but I was not successful to cannulate the cystic duct. She did well postoperatively until three days ago when she developed upper abdominal pain radiating to the back, associated with nausea and vomiting. This prompted her to present to urgent care yesterday. At that time, she was found to have elevated abnormal liver function studies and a CT scan showing the dilated bile duct, prompting DEVON Hood to consult me and her being admitted to my team overnight. Overnight, with the pain medication, she feels like her abdominal symptoms have improved though she still continues to have some upper abdominal pain requiring pain medication. Consultants: Gastroenterology: Dr. Silvio Harrington [facility] Course: POD # [address] Rangel progress note Subjective: Feeling well, Tolerating Food Vital Sign- Last 8 Hours Date Time Temp Pulse Resp B/P Pulse Ox O2 Delivery O2 Flow Rate FiO2 04/11/16 08:53 36.4 76 18 105/70 100 Room Air 04/11/16 05:31 14 98 04/11/16 05:22 36.5 68 14 99/67 98 Room Air Abdomen: Soft, Non-tender Result Diagram: 04/11/16 0545 04/11/16 0545 Impression Doing well Plan DC Home Follow up with Repeat LFTs in 2 weeks Pathology: NONE Disposition: Home Follow-up Plan: Dr. Rangel 2 weeks with LFT's ([mirena]) 20mcg/24hr 20 MCG INTRAUTERI DAILY (Reported) Sennosides (Senna) 8.6 Mg Tablet 8.6 MG PO DAILY (Reported) copies to: Sonia Lobato MD, Sherri L PA-C Apr 11, 2016 13:36
--- NOTE | 2016-04-11 22:41 | PROG NOTE ---
[address] [address] PROGRESS NOTE PATIENT: ODILON DUNLAP : 1975 MR#: [id number] ADMIT: 04/09/2016 JOB ID: [id number] DATE: 04/11/2016 SUBJECTIVE: The patient was visited this morning just prior to her discharge. She was having a little bit of nausea but her abdominal and back pain had resolved. She tolerated her breakfast. Liver tests did come down. OBJECTIVE: Vital signs were stable. Patient appeared in no distress. LABORATORY: Bilirubin had come down to 1.0, AST down to 133, ALT was down to 485, alk phos to 149. ASSESSMENT AND RECOMMENDATIONS: A 41-year-old female with choledocholithiasis status post endoscopic retrograde cholangiopancreatography with biliary sphincterotomy and stone extraction. The patient appeared to be doing well with appropriately falling liver chemistries. Patient should follow up in the GI Clinic on a p.r.n. basis. It sounds like she has an appropriate follow-up appointment in surgical clinic with Dr. Rangel and repeat set of LFTs in the very near future to ensure that these indeed all normalize.
== END 2016-04-11 12:45 | disposition home or self-care (01) | DRG 446 ==
LOC: OBSVTOIN 17:58 → OSC 17:58
PROVIDERS: ADMIT Student in an Organized Health Care Education/Training Program; ATTEND Student in an Organized Health Care Education/Training Program
PROC: 0FC98ZZ Extirpation of Matter from Common Bile Duct, Via Natural or Artificial Opening Endoscopic (ICD-10-PCS; principal; 2016-04-10 15:15)
PROC: 0F798ZZ Dilation of Common Bile Duct, Via Natural or Artificial Opening Endoscopic (ICD-10-PCS; 2016-04-10 15:15)
DX: K80.50 Calculus of bile duct without cholangitis or cholecystitis without obstruction (principal); Z90.49 Acquired absence of other specified parts of digestive tract